=== PATIENT | male | born 1945 | race Caucasian/White ===

== ENCOUNTER 2018-08-14 17:02 | Emergency (ER) | payer MEDICARE, OTHER ==
[~2018-08-14] VITALS: Ht 177.8 cm; Wt 88.5 kg
[~2018-08-14 17:02] MED LIST: ASP81TEC PO; CARV12.53 PO; CEPH-507 PO; HYDR-4226 PO; LISI-552 PO; LISI10TA PO; MULT-974 PO; OMG1KC PO; OXYC-12 PO; PIOG1TAB PO; PRAV40TA2 PO; PRAV80TA2 PO; VITB1TAB PO; [UNRECOGNIZED DRUG - CODE] PO
[2018-08-14] MEDS ORDERED: METH4TAB PO (18:17)
[2018-08-14] MEDS ORDERED: AZIT250T PO (18:17)
--- NOTE | 2018-08-14 18:18 | ED Cough/URI ---
General Chief Complaint: Cough/Cold/Flu Symptoms Stated Complaint: CONGESTION/HEADACHE Nursing Triage Note: PT TO ED W/ C/O COUGH, CONGESTION ET SORE THROAT ONSET X5 DAYS, WORSE TODAY. DENIES IMPROVEMENT W/ OTC MEDS Sepsis Screen: No Definite Risk Source: patient Exam Limitations: no limitations History of Present Illness Date Seen by Provider: Aug 14, 2018 Time Seen by Provider: 18:16 Initial Comments 73-year-old male who presents to the emergency room with complaints of cough and congestion and sore throat for the past 5 days. He is tried several over-the -counter medications without improvement. He denies fevers. Timing/Duration: other (5 days) Severity/Quality: productive cough Associated Symptoms: cough, sore throat Allergies and Home Medications Allergies Coded Allergies: No Known Drug Allergies (Unverified , 06/23/12) Home Medications Aspirin 81 Mg Tabec, 81 MG PO DAILY, (Reported) Azithromycin 250 Mg Tablet, 250 MG PO UD TAKE 2 TABLETS TODAY, THEN TAKE 1 TABLET DAILY FOR 4 MORE DAYS Prescribed by: BARBARA ARVIZU on 08/14/181816 Carvedilol 12.5 Mg Tablet, 12.5 MG PO BID, (Reported) Cephalexin 500 Mg Capsule, 500 MG PO TID Prescribed by: ALLIE VELA on 12/15/15 113 Hydrocodone/Acetaminophen 1 Each Tablet, 1 EACH PO Q6H PRN for PAIN Prescribed by: ALLIE VELA on 12/15/15 113 Lisinopril 20 Mg Tablet, 20 MG PO DAILY, (Reported) Methylprednisolone 4 Mg Tab.ds.pk, 4 MG PO UD Prescribed by: BARBARA ARVIZU on 08/14/181816 Multivitamin 1 Each Tablet, 1 EACH PO DAILY, (Reported) Pioglitazone Hcl/Metformin Hcl 1 Each Tablet, 1 EACH PO DAILY, (Reported) Patient Home Medication List Home Medication List Reviewed: Yes Review of Systems Review of Systems Constitutional: no symptoms reported, see HPI EENTM: see HPI, nose congestion Respiratory: see HPI, cough All Other Systems Reviewed Negative Unless Noted: Yes Past Hoksirs-Xkmhit-Idjrkf Hx Past Med/Social Hx: Reviewed Nursing Past Med/Soc Hx Patient Social History Alcohol Use: Denies Use Recreational Drug Use: No Smoking Status: Former Smoker Former Smoker, Quit: Jul 12, 1972 Recent Foreign Travel: No Contact w/Someone Who Travel: No Recent Infectious Disease Expo: No Immunizations Up To Date Date of Pneumonia Vaccine: Aug 03, 2014 Date of Influenza Vaccine: Apr 23, 2014 Past Medical History Surgeries: Yes (ROTATOR CUFF) Orthopedic Respiratory: No Cardiac: Yes (STENT PLACED IN 2004) Heart Attack Neurological: No Reproductive Disorders: No Genitourinary: No Gastrointestinal: No Musculoskeletal: Yes (TORN ROTATOR CUFF) Endocrine: Yes Diabetes, Non-Insulin dep Cancer: Yes Prostate Psychosocial: No Blood Disorders: No Family Medical History Reviewed Nursing Family Hx Physical Exam Vital Signs - First Documented 08/14/18 17:31 Temp 98.3 Pulse 68 Resp 20 B/P (MAP) 184/82 (116) Pulse Ox 97 O2 Delivery Room Air Capillary Refill : Less Than 3 Seconds Height: 5'10.00" Weight: 195lbs. oz. 88.578396mq; 29.99 BMI Method:Stated General Appearance: WD/WN, no apparent distress Eyes: Bilateral Eye Normal Inspection, Bilateral Eye PERRL, Bilateral Eye EOMI HEENT: PERRL/EOMI, normal ENT inspection, TMs normal, pharynx normal Respiratory: chest non-tender, lungs clear, normal breath sounds, no respiratory distress, no accessory muscle use, respiratory distress Cardiovascular: normal peripheral pulses, regular rate, rhythm, no edema, no gallop, no JVD, no murmur Neurologic/Psychiatric: alert, normal mood/affect, oriented x 3 Skin: normal color, warm/dry Procedures/Interventions Suture Size: 5-0 Progress/Results/Core Measures Suspected Sepsis Recent Fever Within 48 Hours: No Infection Criteria Present: None New/Unexplained Altered Menta: No Sepsis Screen: No Definite Risk SIRS Temperature:98.3 Pulse: 68 Respiratory Rate: 20 Blood Pressure 184 /82 Mean: 116 Results/Orders My Orders Orders - BARBARA ARVIZU Azithromycin Tablet (Zithromax Tablet) (08/14/18 18:22) Vital Signs/I&O 08/14/18 08/14/18 08/14/18 17:31 18:00 18:27 Temp 98.3 98.3 Pulse 68 68 Resp 20 20 B/P (MAP) 184/82 (116) 184/82 (116) Pulse Ox 97 97 O2 Delivery Room Air Room Air Room Air Capillary Refill : Less Than 3 Seconds Blood Pressure Mean: 116 Departure Impression Primary Impression: Bronchitis Disposition: 01 HOME, SELF-CARE Condition: Stable/Unchanged Departure-Patient Inst. Decision time for Depature: 18:16 Referrals: ROSALBA AGUSTIN DO (PCP/Family) Primary Care Physician Patient Instructions: Acute Bronchitis, Adult (DC) Add. Discharge Instructions: Take medications as directed. Be sure to keep an eye on your blood sugars with the steroid use. Continue to use your yulj-sve-vmlnlby medications including something with a decongestant. Follow-up with your primary care provider within 1 week for recheck. Return back to the emergency room for worsening symptoms or concerns as needed. All discharge instructions reviewed with patient and/or family. Voiced understanding. Scripts Methylprednisolone (Medrol) 4 Mg Tab.ds.pk 4 MG PO UD, #1 PKG Prov: BARBARA ARVIZU 08/14/18 Azithromycin (Zithromax) 250 Mg Tablet 250 MG PO UD, #6 TAB TAKE 2 TABLETS TODAY, THEN TAKE 1 TABLET DAILY FOR 4 MORE DAYS Prov: BARBARA ARVIZU 08/14/18 BARBARA ARVIZU Aug 14, 2018 18:18
[2018-08-14] MEDS ORDERED: AZITHROMYCIN 250 MG TAB (ZITHROMAX) PO STA (18:22)
[2018-08-14 18:27] VITALS: BP 184/82
--- NOTE | 2018-08-14 18:27 | NUR ---
PT DISCHARGED TO HOME W/ INSTRUCTIONS. RX TRANSMITTED TO PHARMACY OF CHOICE, PT TO TAKE MEDS DIRECTED, F/U W/ PCP ET RETURN IF SYMPTOMS CHANGE OR GET WORSE. PT VOICED UNDERSTANDING.
== END 2018-08-14 18:27 | disposition home or self-care (01) ==
LOC: EDUNIT# 17:02 → ER 17:04
DX: J40 Bronchitis, not specified as acute or chronic (principal); I25.2 Old myocardial infarction; E78.00 Pure hypercholesterolemia, unspecified; Z85.46 Personal history of malignant neoplasm of prostate; Z79.82 Long term (current) use of aspirin; Z87.891 Personal history of nicotine dependence
CPT/HCPCS: 99283

== ENCOUNTER 2020-03-08 10:12 | Outpatient (RCR) | payer MEDICARE ==
[~2020-03-08 10:12] MED LIST changes: +AZIT250T PO; +METH4TAB PO
== END 2020-03-13 | disposition home or self-care (01) ==
LOC: EDBD
PROVIDERS: ATTEND Chiropractor
DX: M62.830 Muscle spasm of back (principal); M54.6 Pain in thoracic spine; M54.2 Cervicalgia; E11.9 Type 2 diabetes mellitus without complications

== ENCOUNTER 2020-04-05 10:21 | Outpatient (RCR) | payer MEDICARE | END 2020-05-27 15:20 | disposition home or self-care (01) | PROVIDERS: ATTEND Chiropractor | DX: M54.2 Cervicalgia (principal); M54.6 Pain in thoracic spine; M62.830 Muscle spasm of back; E11.9 Type 2 diabetes mellitus without complications ==

== ENCOUNTER 2022-03-04 11:02 | Emergency (ER) | payer MEDICARE ==
[~2022-03-04] VITALS: Ht 177.8 cm; Wt 88.4 kg
[~2022-03-04 11:02] MED LIST changes: -LISI-552 PO; +LISI20TA26 PO
[2022-03-04] MEDS ORDERED: ACETAMINOPHEN 500 MG TAB (TYLENOL) PO ONE (11:30)
[2022-03-04] MEDS ORDERED: IBUPROFEN TABLET 200 MG TAB PO ONE (11:30)
[2022-03-04] MEDS ORDERED: LIDOCAINE 2% VISCOUS 15 ML UDC PO ONE (11:30)
[2022-03-04] MEDS ORDERED: ANTACID SUSP 30 ML UDC (MYLANTA) PO ONE (11:30)
--- NOTE | 2022-03-04 11:32 | ED Respiratory ---
General Stated Complaint: COVID+,DIFFICULTY SWALLOWING,SOB,N/V Source: patient Exam Limitations: no limitations History of Present Illness Date Seen by Provider: Mar 04, 2022 Time Seen by Provider: 11:09 Initial Comments 82-year-old male with past medical history of hypertension, hyperlipidemia, CAD with stenting coming in with spouse due to being COVID-positive, having a sore throat, and feeling short of breath. Started having symptoms on Wednesday, mostly fever and sore throat. Tested positive on Wednesday and was started on Paxlovid that day. Today the sore throat is more severe, he is having difficulty swa llowing although he does not feel like it swollen at all, no difficulty speaking or opening his mouth. Says he feels short of breath, particularly with any type of activity which has been going on for the past week. Last had Tylenol last night. He did swallow his medicines this morning, but is having such pain that he is having difficulty swallowing besides that. He is otherwise denying any other acute complaints Allergies and Home Medications Allergies Coded Allergies: No Known Drug Allergies (Unverified , 06/23/12) Patient Home Medication List Home Medication List Reviewed: Yes Aspirin (Aspirin Ec 81 Mg) 81 Mg Tabec, 81 MG PO DAILY, (Reported) Entered as Reported by: ALECIA MORE on 06/23/12 155 Azithromycin (Zithromax) 250 Mg Tablet, 250 MG PO UD Prescribed by: BARBARA ARVIZU on 08/14/181816 Carvedilol (Carvedilol) 12.5 Mg Tablet, 12.5 MG PO BID, (Reported) Entered as Reported by: BRADLEY ELLSWORTH on 12/15/15 1118 Cephalexin (Keflex) 500 Mg Capsule, 500 MG PO TID Prescribed by: ALLIE VELA on 12/15/15 1139 Hydrocodone/Acetaminophen (Hydrocodone/Acetaminophen 5 MG/325 MG TAB) 1 Each Tablet, 1 EACH PO Q6H PRN for PAIN Prescribed by: ALLIE VELA on 12/15/15 1139 Lisinopril (Lisinopril) 20 Mg Tablet, 20 MG PO DAILY, (Reported) Entered as Reported by: BRADLEY ELLSWORTH on 12/15/15 1118 Methylprednisolone (Medrol) 4 Mg Tab.ds.pk, 4 MG PO UD Prescribed by: BARBARA ARVIZU on 2/3/19 1817 Multivitamin (Multi Vitamin Daily) 1 Each Tablet, 1 EACH PO DAILY, (Reported) Entered as Reported by: HAROON GRACE on 09/04/14 1300 Multivits,Stress Formula (Stress-C) 1 Each Tablet, 1 EACH PO, (Reported) Entered as Reported by: BRADLEY ELLSWORTH on 12/15/15 1118 Pioglitazone Hcl/Metformin Hcl (Actoplus Met 15 Mg-850 Mg Tab) 1 Each Tablet, 1 EACH PO DAILY, (Reported) Entered as Reported by: ALECIA MORE on 06/23/12 1554 Pravastatin Sodium (Pravastatin Sodium) 40 Mg Tablet, 40 MG PO, (Reported) Entered as Reported by: BRADLEY ELLSWORTH on 12/15/15 1118 Review of Systems Review of Systems Constitutional: fever EENTM: No blurred vision Respiratory: cough, short of breath Cardiovascular: no symptoms reported Gastrointestinal: no symptoms reported Genitourinary: no symptoms reported Musculoskeletal: no symptoms reported Skin: no symptoms reported Psychiatric/Neurological: No Symptoms Reported Hematologic/Lymphatic: No Symptoms Reported Immunological/Allergic: no symptoms reported All Other Systems Reviewed Negative Unless Noted: Yes Past Ipflntq-Zvcxes-Tvdhxp Hx Patient Social History Tobacco Use?: No Past Medical History Surgeries: Yes (ROTATOR CUFF) Orthopedic Respiratory: No Cardiac: Yes (STENT PLACED IN 2004) Heart Attack Neurological: No Reproductive Disorders: No Genitourinary: No Gastrointestinal: No Musculoskeletal: Yes (TORN ROTATOR CUFF) Endocrine: Yes Diabetes, Non-Insulin dep Cancer: Yes Prostate Psychosocial: No Blood Disorders: No Physical Exam Vital Signs - First Documented 03/04/22 11:22 Temp 37.3 Pulse 91 Resp 20 B/P (MAP) 186/94 (124) Pulse Ox 93 O2 Delivery Room Air Capillary Refill : Height: 5'10.00" Weight: 195lbs. oz. 88.959422fr; 29.99 BMI Method:Stated General Appearance: WD/WN, no apparent distress Eyes: Bilateral Eye Normal Inspection HEENT: PERRL/EOMI, normal ENT inspection, other (Mild oropharynx erythema but no exudate, no swelling or asymmetry, no trismus, normal voice) Neck: non-tender, full range of motion, supple, normal inspection Respiratory: chest non-tender, lungs clear, normal breath sounds, no respiratory distress, no accessory muscle use Cardiovascular: regular rate, rhythm, no edema, no murmur Gastrointestinal: normal bowel sounds, non tender, soft; No distended, No guarding, No rebound Extremities: normal range of motion, non-tender, normal inspection, no pedal edema, no calf tenderness, normal capillary refill Neurologic/Psychiatric: no motor/sensory deficits, alert, normal mood/affect Skin: normal color, warm/dry Lymphatic: no adenopathy Procedures/Interventions Suture Size: 5-0 Progress/Results/Core Measures Suspected Sepsis SIRS Temperature: Pulse: Respiratory Rate: Laboratory Tests 03/04/22 11:36: White Blood Count 5.7 Blood Pressure / Mean: Laboratory Tests 03/04/22 11:36: Creatinine 1.18, INR Comment 1.0, Platelet Count 120L, Total Bilirubin 1.2H Results/Orders Lab Results Laboratory Tests Test 03/04/22 11:36 Range/Units White Blood Count 5.7 4.3-11.0 10^3/uL Red Blood Count 4.35 4.30-5.52 10^6/uL Hemoglobin 13.8 13.3-17.7 g/dL Hematocrit 40 40-54 % Mean Corpuscular Volume 91 80-99 fL Mean Corpuscular Hemoglobin 32 25-34 pg Mean Corpuscular Hemoglobin Concent 35 32-36 g/dL Red Cell Distribution Width 13.2 10.0-14.5 % Platelet Count 120 L 130-400 10^3/uL Mean Platelet Volume 8.0 L 9.0-12.2 fL Immature Granulocyte % (Auto) 0 % Neutrophils (%) (Auto) 69 42-75 % Lymphocytes (%) (Auto) 19 12-44 % Monocytes (%) (Auto) 9 0-12 % Eosinophils (%) (Auto) 3 0-10 % Basophils (%) (Auto) 0 0-10 % Neutrophils # (Auto) 3.9 1.8-7.8 10^3/uL Lymphocytes # (Auto) 1.1 1.0-4.0 10^3/uL Monocytes # (Auto) 0.5 0.0-1.0 10^3/uL Eosinophils # (Auto) 0.2 0.0-0.3 10^3/uL Basophils # (Auto) 0.0 0.0-0.1 10^3/uL Immature Granulocyte # (Auto) 0.0 0.0-0.1 10^3/uL Percent Immature Platelet Fraction 0.6 0.0-7.6 % Prothrombin Time 13.3 12.2-14.7 SEC INR Comment 1.0 0.8-1.4 Activated Partial Thromboplast Time 34 24-35 SEC Sodium Level 139 135-145 MMOL/L Potassium Level 4.0 3.6-5.0 MMOL/L Chloride Level 105 98-107 MMOL/L Carbon Dioxide Level 21 21-32 MMOL/L Anion Gap 13 5-14 MMOL/L Blood Urea Nitrogen 18 7-18 MG/DL Creatinine 1.18 0.60-1.30 MG/DL Estimat Glomerular Filtration Rate 62 BUN/Creatinine Ratio 15 Glucose Level 176 H 70-105 MG/DL Calcium Level 9.4 8.5-10.1 MG/DL Corrected Calcium 9.2 8.5-10.1 MG/DL Magnesium Level 1.5 L 1.6-2.4 MG/DL Total Bilirubin 1.2 H 0.1-1.0 MG/DL Aspartate Amino Transf (AST/SGOT) 30 5-34 U/L Alanine Aminotransferase (ALT/SGPT) 34 0-55 U/L Alkaline Phosphatase 61 40-136 U/L Troponin I < 0.028 <0.028 NG/ML B-Type Natriuretic Peptide 19.4 <100.0 PG/ML Total Protein 7.5 6.4-8.2 GM/DL Albumin 4.3 3.2-4.5 GM/DL My Orders Orders - CARLA DUGAN MD Cbc With Automated Diff (03/04/22 11:30) Magnesium (03/04/22 11:30) Chest 1 View, Ap/Pa Only (03/04/22 11:30) Ekg Tracing (03/04/22 11:30) Comprehensive Metabolic Panel (03/04/22 11:30) Protime With Inr (03/04/22 11:30) Partial Thromboplastin Time (03/04/22 11:30) O2 (03/04/22 11:30) Monitor-Rhythm Ecg Trace Only (03/04/22 11:30) Ed Iv/Invasive Line Start (03/04/22 11:30) Bnp Jane (03/04/22 11:30) Troponin I Jane (03/04/22 11:30) Lidocaine 2% Viscous 15 Ml (Xylocaine Vi (03/04/22 11:30) Antacid Suspension (Mylanta Suspension (03/04/22 11:30) Ibuprofen Tablet (Motrin Tablet) (03/04/22 11:30) Acetaminophen Tablet (Tylenol Tablet) (03/04/22 11:30) Dexamethasone Injection (Decadron Injec (03/04/22 11:45) Ns Iv 500 Ml (Sodium Chloride 0.9%) (03/04/22 11:35) Medications Given in ED Current Medications Medications Dose Ordered Sig/Sangeetha Route Start Time Stop Time Status Last Admin Dose Admin Acetaminophen 1,000 mg ONCE ONCE PO 03/04/22 11:30 03/04/22 11:32 DC 03/04/22 11:46 1,000 MG Al Hydrox/Mg Hydrox/Simethicone 30 ml ONCE ONCE PO 03/04/22 11:30 03/04/22 11:32 DC 03/04/22 11:40 30 ML Dexamethasone Sodium Phosphate 8 mg ONCE ONCE IV 03/04/22 11:45 03/04/22 11:46 DC 03/04/22 11:43 8 MG Ibuprofen 400 mg ONCE ONCE PO 03/04/22 11:30 03/04/22 11:32 DC 03/04/22 11:46 400 MG Lidocaine HCl 15 ml ONCE ONCE PO 03/04/22 11:30 03/04/22 11:32 DC 03/04/22 11:40 15 ML Vital Signs/I&O 03/04/22 11:22 Temp 37.3 Pulse 91 Resp 20 B/P (MAP) 186/94 (124) Pulse Ox 93 O2 Delivery Room Air Capillary Refill : Progress Note : Progress Note 82-year-old male with above history coming in COVID positive for feeling short of breath with a sore throat. ABCs were intact and vitals were stable on presentation. Oxygen saturation was 94% on room air even when I moved him around the room walking. Lungs clear. Throat appears normal other than mildly red and I do not see any concerns for any type of abscess or swelling. He is tolerating p.o. Was given a GI cocktail of lidocaine which improved his pain. Chest x-ray with likely developing mild pneumonia in the left lower lung. Given this is asymmetric, we will treat this as if it is bacterial with doxycycline. Basic labs essentially unremarkable including a negative troponin. He is otherwise well-appearing and I believe stable for discharge with outpatient follow-up. He was sent home with strict return precautions. ECG Initial ECG Impression Date: Mar 04, 2022 Initial ECG Impression Time: 11:51 Initial ECG Rate: 82 Initial ECG Rhythm: Normal Sinus Comment Narrow QRS, left axis deviation, T wave inversion in aVL which is nonspecific, no significant ST changes Diagnostic Imaging Diagonstic Imaging: Xray (chest) Comments NAME: RUDDY RIOS [facility] REC#: [id number] PT STATUS: REG ER : 03/29/1939 PHYSICIAN: CARLA DUGAN MD ADMIT DATE: 03/04/22/ER Draft Date of Exam:03/04/22 CHEST 1 VIEW, AP/PA ONLY INDICATION: Pharyngitis, respiratory infection. EXAMINATION: Portable chest at 12:00 p.m. FINDINGS: Heart and mediastinum are normal. There is a small patchy infiltrate at the left lateral lung base. Right lung is clear. IMPRESSION: Small patchy infiltrate in the left lower lung could be developing pneumonia. Dictated on workstation # [id number] Dict: 03/04/22 1213 Trans: 03/04/22 1218 [id number] Interpreted by: RONY GRAFF MD Electronically signed by: Departure Impression Primary Impression: COVID-19 Additional Impression: Pharyngitis Qualified Codes: J02.8 - Acute pharyngitis due to other specified organisms Disposition: 01 HOME, SELF-CARE Condition: Stable Departure-Patient Inst. Decision time for Depature: 12:31 Referrals: ROSALBA AGUSTIN DO (PCP/Family) Primary Care Physician Patient Instructions: COVID-19 (DC) Add. Discharge Instructions: You will be on antibiotics for the next week. Continue to take the Paxlovid and finish it. If things get a lot worse then you can follow-up with your regular doctor or come back to the ER. I do recommend taking Tylenol and/or ibuprofen for your sore throat. Scripts Doxycycline Hyclate (Doxycycline Hyclate) 100 Mg Tablet 100 MG PO BID for 7 Days, #14 TAB 0 Refills Prov: CARLA DUGAN MD 03/04/22 CARLA DUGAN MD Mar 04, 2022 11:32
[2022-03-04] MEDS ORDERED: NS IV 500 ML 500 ML IV STA (11:35)
[2022-03-04 11:44] LABS: HEMOGLOBIN 13.8 g/dL (13.3-17.7)
[2022-03-04 11:46] LABS: BASOPHILS % (AUTO) 0 % (0-10); EOSINOPHILS # (AUTO) 0.2 10^3/uL (0.0-0.3); EOSINOPHILS % (AUTO) 3 % (0-10); HEMATOCRIT 40 % (40-54); LYMPHOCYTES # (AUTO) 1.1 10^3/uL (1.0-4.0); LYMPHOCYTES % (AUTO) 19 % (12-44); MEAN CORPUSCULAR HEMOGLOBIN 32 pg (25-34); MEAN CORPUSCULAR HGB CONC 35 g/dL (32-36); MEAN CORPUSCULAR VOLUME 91 fL (80-99); MONOCYTES # (AUTO) 0.5 10^3/uL (0.0-1.0); MONOCYTES % (AUTO) 9 % (0-12); NEUTROPHILS # (AUTO) 3.9 10^3/uL (1.8-7.8); NEUTROPHILS % (AUTO) 69 % (42-75); PLATELET COUNT 120 10^3/uL (130-400); WHITE BLOOD COUNT 5.7 10^3/uL (4.3-11.0)
[2022-03-04 12:08] LABS: ALBUMIN 4.3 GM/DL (3.2-4.5)
[2022-03-04 12:09] LABS: CALCIUM 9.4 MG/DL (8.5-10.1); PROTHROMBIN TIME PATIENT 13.3 SEC (12.2-14.7)
[2022-03-04 12:10] LABS: TOTAL PROTEIN 7.5 GM/DL (6.4-8.2)
[2022-03-04 12:12] LABS: BILIRUBIN,TOTAL 1.2 MG/DL (0.1-1.0)
[2022-03-04 12:14] LABS: CREATININE SERUM 1.18 MG/DL (0.60-1.30)
[2022-03-04 12:17] LABS: MAGNESIUM 1.5 MG/DL (1.6-2.4)
--- NOTE | 2022-03-04 12:19 | Diagnostic Imaging Report ---
INDICATION: Pharyngitis, respiratory infection. EXAMINATION: Portable chest at 12:00 p.m. FINDINGS: Heart and mediastinum are normal. There is a small patchy infiltrate at the left lateral lung base. Right lung is clear. IMPRESSION: Small patchy infiltrate in the left lower lung could be developing pneumonia. Dictated by: Dictated on workstation # [id number]
[2022-03-04] MEDS ORDERED: DOXY100T2 PO (12:32)
[2022-03-04] MEDS ORDERED: DOXYCYCLINE 100 MG (VIBRAMYCIN) TABLET PO STA (12:33)
[2022-03-04 13:02] VITALS: BP 117/59
== END 2022-03-04 13:02 | disposition home or self-care (01) ==
LOC: EDUNIT# 11:02 → ER 11:05
DX: U07.1 COVID-19 (principal); Z73.0 Burn-out
CPT/HCPCS: 36415; 71045; 80053; 83735; 83880; 84484; 85025; 85610; 85730; 93005; 96374

== ENCOUNTER 2022-03-09 12:36 | Emergency (ER) | payer MEDICARE ==
[~2022-03-09] VITALS: Ht 173 cm; Wt 88.4 kg
[~2022-03-09 12:36] MED LIST changes: +DOXY100T2 PO
[2022-03-09] MEDS ORDERED: RT-ALBUTEROL/IPRATROPIUM 3 ML (DUONEB) VIAL INH ONE (13:15)
--- NOTE | 2022-03-09 13:25 | ED General ---
General Chief Complaint: COVID19 Suspect/Confirmed Stated Complaint: COVID + Nursing Triage Note: PT TESTED COVID + LAST WEDNESDAY, IS DONE TAKING HIS MEDICATION, S/S STARTED 1 WK AGO WEDNESDAY, DIABETIC Source of Information: Patient Exam Limitations: No Limitations History of Present Illness Date Seen by Provider: Mar 09, 2022 Time Seen by Provider: 13:15 Initial Comments 82-year-old male diabetic presents for COVID symptoms, shortness of breath and chest pain. He tested positive for COVID 1 week and 1 day ago. Has had progressively worsening shortness of breath at home since that time. Over the last several hours she also states he has had some midsternal chest pressure with radiation to his left shoulder area. He has had a cough which has been minimally productive. Also has fever chills and body aches at home. His blood sugars have been running significantly high in the 500s. Notably he has been on steroids to help with his symptoms and has also been on Paxlovid. Allergies and Home Medications Allergies Coded Allergies: No Known Drug Allergies (Unverified , 06/23/12) Patient Home Medication List Home Medication List Reviewed: Yes Aspirin (Aspirin Ec 81 Mg) 81 Mg Tabec, 81 MG PO DAILY, (Reported) Entered as Reported by: ALECIA MORE on 06/23/12 155 Azithromycin (Zithromax) 250 Mg Tablet, 250 MG PO UD Prescribed by: BARBARA ARVIZU on 08/14/18 181 Carvedilol (Carvedilol) 12.5 Mg Tablet, 12.5 MG PO BID, (Reported) Entered as Reported by: BRADLEY ELLSWORTH on 12/15/15 1118 Cephalexin (Keflex) 500 Mg Capsule, 500 MG PO TID Prescribed by: ALLIE VELA on 12/15/15 1139 Doxycycline Hyclate (Doxycycline Hyclate) 100 Mg Tablet, 100 MG PO BID Prescribed by: CARLA DUGAN on 03/04/22 1232 Hydrocodone/Acetaminophen (Hydrocodone/Acetaminophen 5 MG/325 MG TAB) 1 Each Tablet, 1 EACH PO Q6H PRN for PAIN Prescribed by: ALLIE VELA on 12/15/15 1139 Lisinopril (Lisinopril) 20 Mg Tablet, 20 MG PO DAILY, (Reported) Entered as Reported by: BRADLEY ELLSWORTH on 12/15/15 1118 Methylprednisolone (Medrol) 4 Mg Tab.ds.pk, 4 MG PO UD Prescribed by: BARBARA ARVIZU on 08/14/18 1817 Multivitamin (Multi Vitamin Daily) 1 Each Tablet, 1 EACH PO DAILY, (Reported) Entered as Reported by: HAROON GRACE on 09/04/14 1300 Multivits,Stress Formula (Stress-C) 1 Each Tablet, 1 EACH PO, (Reported) Entered as Reported by: BRADLEY ELLSWORTH on 12/15/15 1118 Pioglitazone Hcl/Metformin Hcl (Actoplus Met 15 Mg-850 Mg Tab) 1 Each Tablet, 1 EACH PO DAILY, (Reported) Entered as Reported by: ALECIA MORE on 06/23/12 1554 Pravastatin Sodium (Pravastatin Sodium) 40 Mg Tablet, 40 MG PO, (Reported) Entered as Reported by: BRADLEY ELLSWORTH on 12/15/15 1118 Review of Systems Review of Systems Constitutional: chills, fever, malaise EENTM: no symptoms reported Respiratory: cough, short of breath Cardiovascular: chest pain Gastrointestinal: no symptoms reported Genitourinary: no symptoms reported Musculoskeletal: muscle cramps Skin: no symptoms reported Psychiatric/Neurological: No Symptoms Reported Hematologic/Lymphatic: No Symptoms Reported Immunological/Allergic: no symptoms reported Past Lpayihl-Ipowfl-Qwdicj Hx Patient Social History Tobacco Use?: Yes Smoking Status: Former Smoker Substance use?: No Alcohol Use?: No Immunizations Up To Date First/Initial COVID19 Vaccinat: UNK Second COVID19 Vaccination Daryl: UNK Third COVID19 Vaccination Date: UNK Past Medical History Surgery/Hospitalization HX: DM, HTN, AMI WITH STENTS Surgeries: Yes (ROTATOR CUFF) Orthopedic Respiratory: No Cardiac: Yes (STENT PLACED IN 2004) Heart Attack Neurological: No Reproductive Disorders: No Genitourinary: No Gastrointestinal: No Musculoskeletal: Yes (TORN ROTATOR CUFF) Endocrine: Yes Diabetes, Non-Insulin dep Cancer: Yes Prostate Psychosocial: No Blood Disorders: No Family Medical History Reviewed Nursing Family Hx No Pertinent Family Hx Physical Exam Vital Signs Vital Signs - First Documented 03/09/22 13:04 Temp 37.3 Pulse 92 Resp 20 B/P (MAP) 189/98 (128) O2 Delivery Room Air Capillary Refill : Height, Weight, BMI Height: 5'10.00" Weight: 195lbs. oz. [id number]; 29.00 BMI Method:Stated General Appearance: No Apparent Distress, WD/WN Eyes: Bilateral Eye Normal Inspection, Bilateral Eye PERRL, Bilateral Eye EOMI, Bilateral Eye Abnormal EOM, Bilateral Eye Abnormal Pupil, Bilateral Eye Conjunctivae Pale, Bilateral Eye Lid Inflammation, Bilateral Eye Photophobia, B ilateral Eye Scleral Icterus, Bilateral Eye Other HEENT: TMs Normal, Normal ENT Inspection, Other Neck: Normal Inspection, Non Tender (Dry mucous membranes), Supple Respiratory: Chest Non Tender, No Respiratory Distress, Other (Tachypnea, slight expiratory wheezes bilateral bases.) Cardiovascular: Regular Rate, Rhythm, No Edema, No Gallop, No JVD, No Murmur, Normal Peripheral Pulses Gastrointestinal: Normal Bowel Sounds, No Organomegaly, No Pulsatile Mass, Non Tender Extremity: Normal Capillary Refill, Normal Inspection, Normal Range of Motion, Non Tender, No Calf Tenderness Neurologic/Psychiatric: Alert, Oriented x3, No Motor/Sensory Deficits, Normal Mood/Affect Skin: Normal Color, Warm/Dry Procedures/Interventions Suture Size: 5-0 Progress/Results/Core Measures Suspected Sepsis SIRS Temperature: Pulse: 92 Respiratory Rate: 20 Laboratory Tests 03/09/22 13:19: White Blood Count 11.3H Blood Pressure 189 /98 Mean: 128 Laboratory Tests 03/09/22 13:19: Creatinine 1.71H, Platelet Count 212, Total Bilirubin 0.9 Results/Orders Lab Results Laboratory Tests Test 03/09/22 13:19 Range/Units White Blood Count 11.3 H 4.3-11.0 10^3/uL Red Blood Count 5.18 4.30-5.52 10^6/uL Hemoglobin 16.4 13.3-17.7 g/dL Hematocrit 47 40-54 % Mean Corpuscular Volume 91 80-99 fL Mean Corpuscular Hemoglobin 32 25-34 pg Mean Corpuscular Hemoglobin Concent 35 32-36 g/dL Red Cell Distribution Width 13.1 10.0-14.5 % Platelet Count 212 130-400 10^3/uL Mean Platelet Volume 8.7 L 9.0-12.2 fL Immature Granulocyte % (Auto) 2 % Neutrophils (%) (Auto) 84 H 42-75 % Lymphocytes (%) (Auto) 7 L 12-44 % Monocytes (%) (Auto) 7 0-12 % Eosinophils (%) (Auto) 0 0-10 % Basophils (%) (Auto) 0 0-10 % Neutrophils # (Auto) 9.5 H 1.8-7.8 10^3/uL Lymphocytes # (Auto) 0.8 L 1.0-4.0 10^3/uL Monocytes # (Auto) 0.8 0.0-1.0 10^3/uL Eosinophils # (Auto) 0.0 0.0-0.3 10^3/uL Basophils # (Auto) 0.0 0.0-0.1 10^3/uL Immature Granulocyte # (Auto) 0.2 H 0.0-0.1 10^3/uL Neutrophils % (Manual) 80 % Lymphocytes % (Manual) 9 % Monocytes % (Manual) 11 % Blood Morphology Comment NORMAL D-Dimer 1.47 H 0.00-0.49 UG/ML Sodium Level 147 H 135-145 MMOL/L Potassium Level 5.4 H 3.6-5.0 MMOL/L Chloride Level 108 H 98-107 MMOL/L Carbon Dioxide Level 22 21-32 MMOL/L Anion Gap 17 H 5-14 MMOL/L Blood Urea Nitrogen 55 H 7-18 MG/DL Creatinine 1.71 H 0.60-1.30 MG/DL Estimat Glomerular Filtration Rate 40 BUN/Creatinine Ratio 32 Glucose Level 458 *H 70-105 MG/DL Calcium Level 10.9 H 8.5-10.1 MG/DL Corrected Calcium 10.7 H 8.5-10.1 MG/DL Total Bilirubin 0.9 0.1-1.0 MG/DL Aspartate Amino Transf (AST/SGOT) 52 H 5-34 U/L Alanine Aminotransferase (ALT/SGPT) 156 H 0-55 U/L Alkaline Phosphatase 68 40-136 U/L Troponin I < 0.028 <0.028 NG/ML Total Protein 7.6 6.4-8.2 GM/DL Albumin 4.2 3.2-4.5 GM/DL My Orders Orders - MOO AVILA DO Cbc With Automated Diff (03/09/22 13:14) Comprehensive Metabolic Panel (03/09/22 13:14) Troponin I [place] (03/09/22 13:14) Chest 1 View, Ap/Pa Only (03/09/22 13:14) Ekg Tracing (03/09/22 13:14) Albuterol/Ipra Inhalation Soln (Duoneb I (03/09/22 13:15) Svn Small Volume Nebulizer (03/09/22 13:14) Fibrin Degradation Products (03/09/22 13:14) Ns Iv 1000 Ml (Sodium Chloride 0.9%) (03/09/22 13:30) Ns Iv 1000 Ml (Sodium Chloride 0.9%) (03/09/22 13:30) Manual Differential (03/09/22 13:19) Ns Iv 500 Ml (Sodium Chloride 0.9%) (03/09/22 13:45) Ns Iv 500 Ml (Sodium Chloride 0.9%) (03/09/22 13:45) Medications Given in ED Current Medications Medications Dose Ordered Sig/Sangeetha Route Start Time Stop Time Status Last Admin Dose Admin Albuterol/ Ipratropium 3 ml ONCE ONCE INH 03/09/22 13:15 03/09/22 13:16 DC 03/09/22 13:40 3 ML Sodium Chloride 500 ml @ 0 mls/hr ONCE ONCE IV 03/09/22 13:45 03/09/22 13:37 DC 03/09/22 13:35 1,000 MLS/HR Vital Signs/I&O 03/09/22 13:04 Temp 37.3 Pulse 92 Resp 20 B/P (MAP) 189/98 (128) O2 Delivery Room Air Capillary Refill : Blood Pressure Mean: 128 Departure Communication (Admissions) Patient is hemodynamically stable. Hypertensive. Has obvious oral thrush on exam likely from steroid use. I believe some of his feeling ill is also related to elevated blood sugars which are also likely related to steroid use. Advised him to stop taking the steroids at this time. Chest x-ray shows no focal pneumonias that would require antibiotics. Will give nystatin swish and swallow and discharged home with supportive care. He is comfortable. Current plan of care and questions were sought and answered. He is discharged home in stable condition. Impression Primary Impression: COVID-19 Additional Impression: Oral thrush Disposition: 01 HOME, SELF-CARE Condition: Stable Departure-Patient Inst. Decision time for Depature: 15:01 Referrals: ROSALBA AGUSTIN DO (PCP/Family) Primary Care Physician Patient Instructions: Thrush (DC), COVID-19 (DC) Add. Discharge Instructions: You were seen in the emergency department today for COVID symptoms. As discussed vital signs are reassuring. Your exam is also reassuring. Your chest x-ray does not show any evidence for pneumonia that would require antibiotics. Your blood sugars are elevated secondary to the steroids you have been on and I expect these to normalize at least somewhat now that you are not taking them. You have oral thrush which is likely the cause of your sore throat. I think this is likely from steroid use as well. Use the mouth rinse provided as prescribed for 7 days. Return to the emergency department for any severe concer ns specifically fever shortness of breath becomes severe if he has any chest pain or if your symptoms change in any way concerning to you. Follow-up with your primary doctor in the next 48 hours for reevaluation. All discharge instructions reviewed with patient and/or family. Voiced understanding. Scripts Nystatin (Nystatin) 100,000 Unit/Ml Oral.susp [id number] UNIT PO TID for 7 Days, #100 ML Prov: MOO AVILA DO 03/09/22 MOO AVILA DO Mar 09, 2022 13:25
[2022-03-09 13:28] LABS: BASOPHILS % (AUTO) 0 % (0-10); EOSINOPHILS % (AUTO) 0 % (0-10); HEMATOCRIT 47 % (40-54); HEMOGLOBIN 16.4 g/dL (13.3-17.7); LYMPHOCYTES # (AUTO) 0.8 10^3/uL (1.0-4.0); LYMPHOCYTES % (AUTO) 7 % (12-44); MEAN CORPUSCULAR HEMOGLOBIN 32 pg (25-34); MEAN CORPUSCULAR HGB CONC 35 g/dL (32-36); MEAN CORPUSCULAR VOLUME 91 fL (80-99); MEAN PLATELET VOLUME 8.7 fL (9.0-12.2); MONOCYTES # (AUTO) 0.8 10^3/uL (0.0-1.0); MONOCYTES % (AUTO) 7 % (0-12); NEUTROPHILS # (AUTO) 9.5 10^3/uL (1.8-7.8); NEUTROPHILS % (AUTO) 84 % (42-75); PLATELET COUNT 212 10^3/uL (130-400); WHITE BLOOD COUNT 11.3 10^3/uL (4.3-11.0)
[2022-03-09] MEDS ORDERED: NS IV 1000 ML 500 ML IV SCH (13:30)
[2022-03-09] MEDS ORDERED: NS IV 1000 ML 1,000 ML IV SCH (13:30)
[2022-03-09] MEDS ORDERED: NS IV 500 ML 500 ML ONE (13:45)
[2022-03-09] MEDS ORDERED: NS IV 500 ML 500 ML IV ONE (13:45)
[2022-03-09 13:46] LABS: ALBUMIN 4.2 GM/DL (3.2-4.5)
[2022-03-09 13:47] LABS: CHLORIDE 108 MMOL/L (98-107); POTASSIUM 5.4 MMOL/L (3.6-5.0); SODIUM 147 MMOL/L (135-145)
[2022-03-09 13:48] LABS: CALCIUM 10.9 MG/DL (8.5-10.1)
[2022-03-09 13:49] LABS: TOTAL PROTEIN 7.6 GM/DL (6.4-8.2)
[2022-03-09 13:50] LABS: CARBON DIOXIDE 22 MMOL/L (21-32)
[2022-03-09 13:51] LABS: BILIRUBIN,TOTAL 0.9 MG/DL (0.1-1.0); GLUCOSE 458 MG/DL (70-105)
[2022-03-09 13:52] LABS: ALKALINE PHOSPHATASE 68 U/L (40-136)
[2022-03-09 13:53] LABS: CREATININE SERUM 1.71 MG/DL (0.60-1.30); GFR ESTIMATED 40
[2022-03-09 13:54] LABS: BUN/CREATININE RATIO 32
[2022-03-09 13:56] LABS: ALANINE AMINOTRANSFERASE 156 U/L (0-55)
--- NOTE | 2022-03-09 13:57 | Diagnostic Imaging Report ---
CLINICAL INDICATION: COVID positive and dyspnea. EXAM: Portable chest x-ray upright view. COMPARISON: Chest x-ray dated 03/04/2022. FINDINGS: Lungs/pleura: There is slight improved aeration left lung base with residual mild curvilinear patchy airspace opacities remaining. The remainder of the lungs are clear. There is no pneumothorax. There is no pleural effusion. Mediastinum: Unremarkable. Pulmonary vasculature: Unremarkable. Heart: Unremarkable. Bones/extrathoracic soft tissue: There are hypertrophic spurs involving the thoracic spine. IMPRESSION: There is improved aeration left lung base with residual minimal left basilar atelectasis versus infiltrate. Dictated by: Dictated on workstation # [id number]
[2022-03-09 14:09] LABS: LYMPHOCYTES % (MANUAL) 9 %; MONOCYTES % (MANUAL) 11 %; NEUTROPHILS % (MANUAL) 80 %; RBC MORPH NORMAL
[2022-03-09] MEDS ORDERED: NYST1000 PO (15:01)
[2022-03-09 15:15] VITALS: BP 196/95
[2022-03-10] MEDS ORDERED: ALBU8.5H9 IH (17:25)
[2022-03-10] MEDS ORDERED: METF-865 PO (17:25)
[2022-03-10] MEDS ORDERED: GLIM2TAB4 PO (17:25)
[2022-03-10] MEDS ORDERED: SITA100T12 PO (17:25)
[2022-03-10] MEDS ORDERED: ASCO100024 PO (17:25)
[2022-03-10] MEDS ORDERED: [UNRECOGNIZED DRUG - OTHER] PO (17:25)
[2022-03-10] MEDS ORDERED: ZINC50TA51 PO (17:25)
[2022-03-10] MEDS ORDERED: ATOR40TA70 PO (17:25)
[2022-03-10] MEDS ORDERED: CHOL500050 PO (17:25)
== END 2022-03-09 15:15 | disposition home or self-care (01) ==
LOC: EDUNIT# 12:36 → ER 12:38
DX: U07.1 COVID-19 (principal); B37.0 Candidal stomatitis; Z87.891 Personal history of nicotine dependence; Z73.0 Burn-out
CPT/HCPCS: 36415; 71045; 80053; 84484; 85007; 85027; 85379; 93005

== ENCOUNTER 2022-03-10 14:35 | Observation (INO) | payer MEDICARE ==
[~2022-03-10] VITALS: Ht 172.7 cm; Wt 78.6 kg
[~2022-03-10 14:35] MED LIST changes: +NYST1000 PO
[2022-03-10] MEDS ORDERED: PATIENT MAY USE OWN MEDS, ALL PO SCH (14:45)
[2022-03-10] MEDS ORDERED: ACETAMINOPHEN 325 MG TABLET PO PRN (14:45)
[2022-03-10] MEDS ORDERED: ONDANSETRON 4 MG/2 ML (SDV) Z0FRAN IV PRN (14:45)
--- NOTE | 2022-03-10 14:52 | History & Physical ---
History of Present Illness History of Present Illness Reason for visit/HPI This is an 82 year old male who was diagnosed with COVID-19 on 03/02/22. He was seen in the emergency room for fatigue, shortness of breath and weakness on 03/04/22 and told to continue with the paxlovid and hydrate and his medications were adjusted for his elevated blood sugar from steroids. He then presented back to the emergency room on 03/09/22 for weakness, chest pain and shortness of air. His cardiac workup was negative. He was found to be dehydrated and to have thrush. He was prescribed nystatin and told to go home and hydrate. He presents to my office today with his pushing him in a wheelchair and stating he is dying. He has been unable to drink or eat due to his weakness and feeling nauseous. He will be directly admitted for IVFs and further evaluation and treatment. Date of Admission Date Seen by a Provider: Mar 10, 2022 Time Seen by a Provider: 14:51 I consulted on this patient on 03/10/22 14:47 Attending Physician Rosalba Murray DO Admitting Physician Admitting Physician: Rosalba Murray DO Attending Physician: Rosalba Murray DO Consult Allergies and Home Medications Allergies Coded Allergies: No Known Drug Allergies (Unverified , 06/23/12) Patient Home Medication List Home Medication List Reviewed: Yes Aspirin (Aspirin Ec 81 Mg) 81 Mg Tabec, 81 MG PO DAILY, (Reported) Entered as Reported by: ALECIA MORE on 06/23/12 1554 Azithromycin (Zithromax) 250 Mg Tablet, 250 MG PO UD Prescribed by: BARBARA ARVIZU on 08/14/18 1817 Carvedilol (Carvedilol) 12.5 Mg Tablet, 12.5 MG PO BID, (Reported) Entered as Reported by: BRADLEY ELLSWORTH on 12/15/15 1118 Cephalexin (Keflex) 500 Mg Capsule, 500 MG PO TID Prescribed by: ALLIE VELA on 12/15/15 1139 Doxycycline Hyclate (Doxycycline Hyclate) 100 Mg Tablet, 100 MG PO BID Prescribed by: CARLA DUGAN on 03/04/22 1232 Hydrocodone/Acetaminophen (Hydrocodone/Acetaminophen 5 MG/325 MG TAB) 1 Each Tablet, 1 EACH PO Q6H PRN for PAIN Prescribed by: ALLIE VELA on 12/15/15 1139 Lisinopril (Lisinopril) 20 Mg Tablet, 20 MG PO DAILY, (Reported) Entered as Reported by: BRADLEY ELLSWORTH on 12/15/15 1118 Methylprednisolone (Medrol) 4 Mg Tab.ds.pk, 4 MG PO UD Prescribed by: BARBARA ARVIZU on 08/14/18 1817 Multivitamin (Multi Vitamin Daily) 1 Each Tablet, 1 EACH PO DAILY, (Reported) Entered as Reported by: HAROON GRACE on 09/04/14 1300 Multivits,Stress Formula (Stress-C) 1 Each Tablet, 1 EACH PO, (Reported) Entered as Reported by: BRADLEY ELLSWORTH on 12/15/15 1118 Nystatin (Nystatin) 100,000 Unit/Ml Oral.susp, 100,000 UNIT PO TID Prescribed by: MOO AVILA MD on 03/09/22 1501 Pioglitazone Hcl/Metformin Hcl (Actoplus Met 15 Mg-850 Mg Tab) 1 Each Tablet, 1 EACH PO DAILY, (Reported) Entered as Reported by: ALECIA MORE on 06/23/12 1554 Pravastatin Sodium (Pravastatin Sodium) 40 Mg Tablet, 40 MG PO, (Reported) Entered as Reported by: BRADLEY ELLSWORTH on 12/15/15 1118 Past Pvubbwb-Pwfxhm-Crlyoh Hx Patient Social History Marrital Status: Immunizations Up To Date Date of Influenza Vaccine: Apr 23, 2014 First/Initial COVID19 Vaccinat: UNK Second COVID19 Vaccination Daryl: UNK Tetanus Booster (TDap): Less Than 5 Years Date of Pneumonia Vaccine: Aug 03, 2014 Current Status Primary Language: [place] Past Medical History Surgeries: Orthopedic Heart Attack Diabetes, Non-Insulin dep Prostate Blood Disorders: No Family Medical History No Pertinent Family Hx Review of Systems Constitutional: weakness EENTM: No see HPI, No no symptoms reported, No ear discharge, No hearing loss, No ear pain, No blurred vision, No double vision, No eye pain, No tearing, No vision loss, No dental problems, No hoarseness, No mouth pain, No mouth swelling, No epistaxis, No nose congestion, No nose pain, No throat pain, No throat swelling, No other Respiratory: dyspnea on exertion, short of breath Cardiovascular: No no symptoms reported, No see HPI, No chest pain, No edema, No Hx of Intervention, No palpitations, No syncope, No vascular heart diseas, No other Gastrointestinal: loss of appetite, nausea Genitourinary: decreased output Musculoskeletal: muscle weakness Skin: No no symptoms reported, No see HPI, No change in color, No change in hair/nails, No dryness, No hx of skin cancer, No lesions, No lumps, No pruritus, No rash, No other Psychiatric/Neurological: Weakness Physical Exam Vital Signs Capillary Refill : Height, Weight, BMI Height: 5'10.00" Weight: 195lbs. oz. 88.489065nx; 29.00 BMI Method:Stated General Appearance: Moderate Distress HEENT: Other (thrush) Neck: Supple Respiratory: Crackles (in bases), Decreased Breath Sounds Cardiovascular: Gallop/S4, Tachycardia Gastrointestinal: Normal Bowel Sounds, Non Tender, Soft Rectal: Deferred Extremity: Non Tender, No Calf Tenderness, No Pedal Edema Neurologic/Psychiatric: Alert, Oriented x3, Motor Weakness (in wheelchair) Assessment/Plan Assessment and Plan 1. COVID-19--admit and start IS, lovenox for DVT prophylaxis 2. Dehydration--admit for IVFs and monitor BUN/Cr 3. Hypertension/Sinus Tachycardia--start Carvedilol and monitor on telemetry 4. Thrush--nystain orally and diflucan 5. Diabetes mellitus--accuchecks and SSI 6. Atelectesis--start IS 7. Acute Renal Insufficiency--hydrate and monitor renal function 8. Weakness-hydrate and monitor 9. Dyspepsia/Nausea--IV protonix for GI prophylaxis and zofran prn, clear liquids then advance as tolerated Admission Diagnosis Admission Status: Observation ROSALBA MURRAY DO Mar 10, 2022 14:52
[2022-03-10] MEDS ORDERED: fluCOnazole (DIFLUCAN) 100 MG TAB PO NR (15:15)
[2022-03-10] MEDS ORDERED: NS IV 1000 ML 1,000 ML ONE (15:18)
[2022-03-10 15:19] VITALS: BP 187/94
[2022-03-10] MEDS ORDERED: PANTOPRAZOLE 40 MG (PROTONIX) VIAL IV NR (15:30)
[2022-03-10] MEDS: NS IV 1000 ML 1,000 ML IV SCH ×3 (15:38→23:19)
[2022-03-10] MEDS: NYSTATIN ORAL SUSP 5 ML UDC PO SCH ×2 (16:30→23:19)
[2022-03-10] MEDS: ENOXAPARIN 40 MG/0.4 ML (LOVENOX) SYR SC SCH (16:31)
[2022-03-10] MEDS: inSUlin ASPART (NovoLOG) 1 UNIT/0.01 ML (CHARGE PER UNIT) SC SCH ×2 (16:32→21:53)
[2022-03-10 16:49] LABS: BASOPHILS % (AUTO) 0 % (0-10); EOSINOPHILS % (AUTO) 0 % (0-10); HEMATOCRIT 50 % (40-54); LYMPHOCYTES # (AUTO) 0.8 10^3/uL (1.0-4.0); LYMPHOCYTES % (AUTO) 7 % (12-44); MEAN CORPUSCULAR HEMOGLOBIN 31 pg (25-34); MEAN CORPUSCULAR HGB CONC 34 g/dL (32-36); MEAN CORPUSCULAR VOLUME 92 fL (80-99); MEAN PLATELET VOLUME 8.8 fL (9.0-12.2); MONOCYTES # (AUTO) 0.7 10^3/uL (0.0-1.0); MONOCYTES % (AUTO) 6 % (0-12); NEUTROPHILS # (AUTO) 8.5 10^3/uL (1.8-7.8); NEUTROPHILS % (AUTO) 83 % (42-75); PLATELET COUNT 175 10^3/uL (130-400); WHITE BLOOD COUNT 10.3 10^3/uL (4.3-11.0)
[2022-03-10 17:09] LABS: ALBUMIN 3.8 GM/DL (3.2-4.5)
[2022-03-10 17:10] LABS: POTASSIUM 5.1 MMOL/L (3.6-5.0)
[2022-03-10 17:11] LABS: CALCIUM 9.7 MG/DL (8.5-10.1)
[2022-03-10 17:12] LABS: TOTAL PROTEIN 6.9 GM/DL (6.4-8.2)
[2022-03-10 17:14] LABS: BILIRUBIN,TOTAL 1.1 MG/DL (0.1-1.0)
[2022-03-10 17:15] LABS: CREATININE SERUM 1.51 MG/DL (0.60-1.30)
[2022-03-10] MEDS ORDERED: [UNRECOGNIZED DRUG - OTHER] PO (17:25)
[2022-03-10] MEDS ORDERED: CHOL500050 PO (17:25)
[2022-03-10] MEDS ORDERED: ASCO100024 PO (17:25)
[2022-03-10] MEDS ORDERED: GLIM2TAB4 PO (17:25)
[2022-03-10] MEDS ORDERED: ZINC50TA51 PO (17:25)
[2022-03-10] MEDS ORDERED: SITA100T12 PO (17:25)
[2022-03-10] MEDS ORDERED: ATOR40TA70 PO (17:25)
[2022-03-10] MEDS ORDERED: ALBU8.5H9 IH (17:25)
[2022-03-10] MEDS ORDERED: METF-865 PO (17:25)
[2022-03-10 18:01] VITALS: BP 153/80
[2022-03-10 19:48] VITALS: BP 138/91
[2022-03-10] MEDS: CHLORASEPTIC SPRAY 177 ML LIQUID MC PRN (20:07)
[2022-03-10 23:26] VITALS: BP 175/86
[2022-03-11 00:27] VITALS: BP 162/84
[2022-03-11 03:39] VITALS: BP 152/77
[2022-03-11] MEDS: CHLORASEPTIC SPRAY 177 ML LIQUID MC PRN (03:41)
[2022-03-11] MEDS: NYSTATIN ORAL SUSP 5 ML UDC PO SCH ×4 (04:58→23:58)
[2022-03-11 06:07] LABS: HEMATOCRIT 44 % (40-54); MEAN CORPUSCULAR HEMOGLOBIN 31 pg (25-34); MEAN CORPUSCULAR HGB CONC 34 g/dL (32-36); MEAN CORPUSCULAR VOLUME 93 fL (80-99); MEAN PLATELET VOLUME 8.8 fL (9.0-12.2); PLATELET COUNT 132 10^3/uL (130-400); WHITE BLOOD COUNT 6.1 10^3/uL (4.3-11.0)
[2022-03-11] MEDS: inSUlin ASPART (NovoLOG) 1 UNIT/0.01 ML (CHARGE PER UNIT) SC SCH ×4 (06:09→20:58)
[2022-03-11 06:18] LABS: ALBUMIN 3.2 GM/DL (3.2-4.5); POTASSIUM 4.6 MMOL/L (3.6-5.0)
[2022-03-11 06:19] LABS: CALCIUM 8.8 MG/DL (8.5-10.1)
[2022-03-11 06:20] LABS: TOTAL PROTEIN 5.8 GM/DL (6.4-8.2)
[2022-03-11 06:22] LABS: BILIRUBIN,TOTAL 0.8 MG/DL (0.1-1.0)
[2022-03-11 06:24] LABS: CREATININE SERUM 1.28 MG/DL (0.60-1.30)
[2022-03-11] MEDS: PANTOPRAZOLE 40 MG (PROTONIX) VIAL IV SCH (09:06)
[2022-03-11] MEDS: 1/2 NS IV SOLUTION 1,000 ML IV SCH ×2 (09:06→18:17)
[2022-03-11] MEDS: fluCOnazole (DIFLUCAN) 100 MG TAB PO SCH (09:06)
[2022-03-11 11:50] VITALS: BP 143/68
[2022-03-11] MEDS ORDERED: ASCO100099 PO (12:23)
[2022-03-11] MEDS ORDERED: MULT-1061 PO (12:23)
[2022-03-11] MEDS ORDERED: OMEG-9 PO (12:23)
[2022-03-11] MEDS ORDERED: DOXY100C5 PO (12:23)
[2022-03-11] MEDS ORDERED: ASPI-1238 PO (12:23)
[2022-03-11] MEDS ORDERED: CARV12.53 PO (12:34)
--- NOTE | 2022-03-11 12:39 | Progress Note ---
Subjective Date Seen by a Provider: Mar 11, 2022 Time Seen by a Provider: 08:35 Subjective/Events-last exam Fwup dehydration, acute renal insufficiency, atelectesis, COVID-19, fat igue/weakness, hyperglycemia, HTN. Sitting up in chair and states I made it through the night. C/O nausea. Objective Exam Vital Signs Date Time Temp Pulse Resp B/P (MAP) Pulse Ox O2 Delivery O2 Flow Rate FiO2 03/11/22 11:50 36.1 72 18 143/68 (93) 95 Room Air 03/11/22 09:31 95 Room Air 03/11/22 07:12 67 03/11/22 03:39 36.2 77 18 152/77 (102) 95 Room Air 03/11/22 01:00 87 03/11/22 00:27 162/84 (110) 03/10/22 23:26 36.0 79 18 175/86 (115) 96 Room Air 03/10/22 19:48 36.7 87 19 138/91 (107) 94 Room Air 03/10/22 19:00 92 03/10/22 18:20 94 Room Air 03/10/22 18:01 36.5 93 20 153/80 (104) 94 Room Air 03/10/22 15:38 96 03/10/22 15:19 35.8 106 20 187/94 (125) 96 Room Air I & O 03/11/22 07:00 Intake Total 520 ml Output Total 220 ml Balance 300 ml Capillary Refill : General Appearance: Moderate Distress Respiratory: Lungs Clear, Decreased Breath Sounds Cardiovascular: Regular Rate, Rhythm, Gallop/S4 Gastrointestinal: normal bowel sounds, non tender, soft Extremity: Non Tender, No Calf Tenderness, No Pedal Edema Neurologic/Psychiatric: Alert Results Lab Laboratory Tests 03/10/22 15:33: Glucometer 344H 03/10/22 16:40: White Blood Count 10.3, Red Blood Count 5.43, Hemoglobin 17.0, Hematocrit 50, Mean Corpuscular Volume 92, Mean Corpuscular Hemoglobin 31, Mean Corpuscular Hemoglobin Concent 34, Red Cell Distribution Width 13.2, Platelet Count 175, Mean Platelet Volume 8.8L, Immature Granulocyte % (Auto) 2, Neutrophils (%) (Auto) 83H, Lymphocytes (%) (Auto) 7L, Monocytes (%) (Auto) 6, Eosinophils (%) (Auto) 0, Basophils (%) (Auto) 0, Neutrophils # (Auto) 8.5H, Lymphocytes # (Auto) 0.8L, Monocytes # (Auto) 0.7, Eosinophils # (Auto) 0.0, Basophils # (Auto) 0.0, Immature Granulocyte # (Auto) 0.3H, Sodium Level 148H, Potassium Level 5.1H, Chloride Level 111H, Carbon Dioxide Level 20L, Anion Gap 17H, Blood Urea Nitrogen 51H, Creatinine 1.51H, Estimat Glomerular Filtration Rate 46, BUN/Creatinine Ratio 34, Glucose Level 377H, Calcium Level 9.7, Corrected Calcium 9.9, Total Bilirubin 1.1H, Aspartate Amino Transf (AST/SGOT) 48H, Alanine Aminotransferase (ALT/SGPT) 183H, Alkaline Phosphatase 63, Total Protein 6.9, Albumin 3.8 03/10/22 21:49: Glucometer 291H 03/11/22 05:58: White Blood Count 6.1, Red Blood Count 4.78, Hemoglobin 15.0, Hematocrit 44, Mean Corpuscular Volume 93, Mean Corpuscular Hemoglobin 31, Mean Corpuscular Hemoglobin Concent 34, Red Cell Distribution Width 13.0, Platelet Count 132, Mean Platelet Volume 8.8L, Sodium Level 149H, Potassium Level 4.6, Chloride Level 117H, Carbon Dioxide Level 21, Anion Gap 11, Blood Urea Nitrogen 41H, Creatinine 1.28, Estimat Glomerular Filtration Rate 57, BUN/Creatinine Ratio 32, Glucose Level 268H, Calcium Level 8.8, Corrected Calcium 9.4, Total Bilirubin 0.8, Aspartate Amino Transf (AST/SGOT) 40H, Alanine Aminotransferase (ALT/SGPT) 152H, Alkaline Phosphatase 55, Total Protein 5.8L, Albumin 3.2 03/11/22 06:05: Glucometer 265H 03/11/22 11:31: Glucometer 258H Assessment/Plan Assessment/Plan Assess & Plan/Chief Complaint 1. Dehydration/Acute Renal Insufficiency--BUN/Cr improved, encourage oral intake, continue IVFs but change to 1/2 NS 2. COVID-19--Lovenox for DVT prophylaxis, encourage IS, completed paxlovid and decadron courses prior to admission 3. Hypertension--increase Coreg to 25mg po BID 4. Dyspepsia/Nausea--on protonix for GI prophylaxis, zofran prn 5. DMII with hyperglycemia--on SSI, will add low dose levemir 6. Thrush--on nystatin and diflucan 7. Hypernatremia--change IVFs to 1/2NS and monitor 8. Weakness/Fatigue--up to chair and encourage moving around in room Clinical Quality Measures Admission Status Admission Dx 1. COVID-19--admit and start IS, lovenox for DVT prophylaxis 2. Dehydration--admit for IVFs and monitor BUN/Cr 3. Hypertension/Sinus Tachycardia--start Carvedilol and monitor on telemetry 4. Thrush--nystain orally and diflucan 5. Diabetes mellitus--accuchecks and SSI 6. Atelectesis--start IS 7. Acute Renal Insufficiency--hydrate and monitor renal function 8. Weakness-hydrate and monitor 9. Dyspepsia/Nausea--IV protonix for GI prophylaxis and zofran prn, clear liquids then advance as tolerated ROSALBA AGUSTIN DO Mar 11, 2022 12:39
[2022-03-11 16:01] VITALS: BP 148/81
[2022-03-11] MEDS: ENOXAPARIN 40 MG/0.4 ML (LOVENOX) SYR SC SCH (16:21)
[2022-03-11 20:57] VITALS: BP 167/86
[2022-03-12] VITALS (7 sets, daily range): BP systolic 114–170; BP diastolic 63–78
[2022-03-12] MEDS: 1/2 NS IV SOLUTION 1,000 ML IV SCH ×2 (05:02→15:14)
[2022-03-12] MEDS: NYSTATIN ORAL SUSP 5 ML UDC PO SCH ×4 (05:02→23:25)
[2022-03-12] MEDS: inSUlin ASPART (NovoLOG) 1 UNIT/0.01 ML (CHARGE PER UNIT) SC SCH ×4 (05:04→21:14)
[2022-03-12 06:37] LABS: ALBUMIN 2.7 GM/DL (3.2-4.5); POTASSIUM 4.1 MMOL/L (3.6-5.0)
[2022-03-12 06:38] LABS: CALCIUM 7.8 MG/DL (8.5-10.1)
[2022-03-12 06:40] LABS: TOTAL PROTEIN 4.9 GM/DL (6.4-8.2)
[2022-03-12 06:41] LABS: BILIRUBIN,TOTAL 0.8 MG/DL (0.1-1.0)
[2022-03-12] MEDS: PANTOPRAZOLE 40 MG (PROTONIX) VIAL IV SCH (09:04)
[2022-03-12] MEDS: fluCOnazole (DIFLUCAN) 100 MG TAB PO SCH (09:04)
--- NOTE | 2022-03-12 13:04 | Progress Note ---
Subjective Date Seen by a Provider: Mar 12, 2022 Time Seen by a Provider: 13:02 Subjective/Events-last exam Fwup dehydration, acute renal insufficiency, atelectesis, COVID-19, fati stephenie/weakness, hyperglycemia, HTN. Feeling better. Wants regular food. Objective Exam Vital Signs Date Time Temp Pulse Resp B/P (MAP) Pulse Ox O2 Delivery O2 Flow Rate FiO2 03/12/22 11:57 36.0 63 18 114/63 (80) 94 Room Air 03/12/22 09:00 95 Room Air 03/12/22 08:07 35.6 60 18 138/72 (94) 94 Room Air 03/12/22 07:00 60 03/12/22 03:07 36.4 60 18 150/71 (97) 94 Room Air 03/12/22 01:00 62 03/12/22 00:30 36.5 62 18 133/65 (87) 93 Room Air 03/11/22 20:57 36.6 66 19 167/86 (113) 94 Room Air 03/11/22 20:45 94 Room Air 03/11/22 19:00 69 03/11/22 16:01 36.7 64 19 148/81 (103) 95 Room Air 03/11/22 13:42 64 I & O 03/12/22 07:00 Intake Total 1310 ml Output Total 100 ml Balance 1210 ml Capillary Refill : General Appearance: No Apparent Distress Neck: Supple Cardiovascular: Regular Rate, Rhythm Gastrointestinal: normal bowel sounds, non tender, soft Extremity: Non Tender, No Calf Tenderness, No Pedal Edema Neurologic/Psychiatric: Alert, Oriented x3 Results Lab Laboratory Tests 03/11/22 15:53: Glucometer 220H 03/11/22 20:49: Glucometer 176H 03/12/22 05:01: Glucometer 171H 03/12/22 06:01: Sodium Level 142, Potassium Level 4.1, Chloride Level 114H, Carbon Dioxide Level 21, Anion Gap 7, Blood Urea Nitrogen 30H, Creatinine 1.00, Estimat Glomerular Filtration Rate 76, BUN/Creatinine Ratio 30, Glucose Level 190H, Calcium Level 7.8L, Corrected Calcium 8.8, Total Bilirubin 0.8, Aspartate Amino Transf (AST/SGOT) 33, Alanine Aminotransferase (ALT/SGPT) 114H, Alkaline Phosphatase 46, Total Protein 4.9L, Albumin 2.7L 03/12/22 11:14: Glucometer 281H Assessment/Plan Assessment/Plan Assess & Plan/Chief Complaint 1. Dehydration/Acute Renal Insufficiency--BUN/Cr improved, encourage oral intake, continue IVFs but decrease rate 2. COVID-19--Lovenox for DVT prophylaxis, encourage IS, completed paxlovid and decadron courses prior to admission 3. Hypertension--stable on Coreg to 25mg po BID 4. Dyspepsia/Nausea--on protonix for GI prophylaxis, zofran prn, improved so will advance to diabetic diet 5. DMII with hyperglycemia--on SSI, increase levemir dose 6. Thrush--on nystatin and diflucan 7. Hypernatremia--improving 8. Weakness/Fatigue--up to chair and encourage moving around in room Plan DC home tomorrow if tolerating regular diet Clinical Quality Measures Admission Status Admission Dx 1. COVID-19--admit and start IS, lovenox for DVT prophylaxis 2. Dehydration--admit for IVFs and monitor BUN/Cr 3. Hypertension/Sinus Tachycardia--start Carvedilol and monitor on telemetry 4. Thrush--nystain orally and diflucan 5. Diabetes mellitus--accuchecks and SSI 6. Atelectesis--start IS 7. Acute Renal Insufficiency--hydrate and monitor renal function 8. Weakness-hydrate and monitor 9. Dyspepsia/Nausea--IV protonix for GI prophylaxis and zofran prn, clear liquids then advance as tolerated ROSALBA AGUSTIN DO Mar 12, 2022 13:04
[2022-03-12] MEDS: ENOXAPARIN 40 MG/0.4 ML (LOVENOX) SYR SC SCH (15:14)
[2022-03-13 04:53] VITALS: BP 141/74
[2022-03-13] MEDS: NYSTATIN ORAL SUSP 5 ML UDC PO SCH ×2 (04:54→11:56)
[2022-03-13] MEDS: 1/2 NS IV SOLUTION 1,000 ML IV SCH (04:55)
[2022-03-13] MEDS: inSUlin ASPART (NovoLOG) 1 UNIT/0.01 ML (CHARGE PER UNIT) SC SCH ×2 (05:16→11:57)
[2022-03-13 08:30] VITALS: BP 168/75
[2022-03-13] MEDS: PANTOPRAZOLE 40 MG (PROTONIX) VIAL IV SCH (08:35)
[2022-03-13] MEDS: fluCOnazole (DIFLUCAN) 100 MG TAB PO SCH (08:35)
--- NOTE | 2022-03-13 10:47 | Diagnostic Imaging Report ---
INDICATION: Abnormal breath sounds. Frontal chest obtained at 10:41 a.m. compared 03/09/2022 FINDINGS: Heart is mildly prominent. There is poor inspiration with mild bibasilar atelectasis. There is no pneumothorax or pleural fluid. IMPRESSION: Poor inspiration with mild bibasilar atelectasis. No other significant finding. Dictated by: Dictated on workstation # [id number]
[2022-03-13 12:00] VITALS: BP 130/69
[2022-03-13] MEDS ORDERED: FLUC100T PO (12:24)
--- NOTE | 2022-03-13 14:27 | Discharge Summary ---
Diagnosis/Chief Complaint Date of Admission Mar 10, 2022 at 14:50 Date of Discharge Discharge Date: Mar 13, 2022 Discharge Diagnosis 1. COVID-19--ongoing fatigue 2. Dehydration--resolved 3. Hypertension/Sinus Tachycardia--improved 4. Thrush--nystain orally and diflucan 5. Diabetes mellitus with hyperglycemia--blood sugar trending down 6. Atelectesis--home on IS 7. Acute Renal Insufficiency--resolved 8. Weakness-improving 9. Dyspepsia/Nausea/Poor Appetite--improving 10. Hypernatremia--Resolved Reason Hospital Visit This is an 82 year old male who was diagnosed with COVID-19 on 03/02/22. He was seen in the emergency room for fatigue, shortness of breath and weakness on 03/04/22 and told to continue with the paxlovid and hydrate and his medications were adjusted for his elevated blood sugar from steroids. He then presented back to the emergency room on 03/09/22 for weakness, chest pain and shortness of air. His cardiac workup was negative. He was found to be dehydrated and to have thrush. He was prescribed nystatin and told to go home and hydrate. He presents to my office today with his pushing him in a wheelchair and stating he is dying. He has been unable to drink or eat due to his weakness and feeling nauseous. He will be directly admitted for IVFs and further evaluation and treatment. Discharge Summary Hospital Course Was the Problem List Reviewed?: Yes Hospital Course This is an 82 year old male who was diagnosed with COVID-19 on 03/02/22. He was seen in the emergency room for fatigue, shortness of breath and weakness on 03/04/22 and told to continue with the paxlovid and hydrate and his medications were adjusted for his elevated blood sugar from steroids. He then presented back to the emergency room on 03/09/22 for weakness, chest pain and shortness of air. His cardiac workup was negative. He was found to be dehydrated and to have thrush. He was prescribed nystatin and told to go home and hydrate. He presentend to my office the following day with his pushing him in a wheelchair and stating he is dying. He not drinking or eating due to his weakness and feeling nauseous. He was directly admitted to the medical floor in isolation for IVFs and further evaluation and treatment. He was given IVFs and his BUN and creatinine improved from 51 and 1.51 on admit to 30 and 1.00 respectively on discharge. His sodium also improved from 148 on admission to 142 on discharge. He was given lovenox for DVT prophylaxis as well as protonix for GI prophylaxis and dyspepsia. His thrush was treated with both diflucan and nystatin suspension. He was started on incentive spirometry for atelectesis but was not good about using the IS the first 24hrs after admission due to being too tired. His appetite was finally improving by the day of discharge and he did consume a good portion of his breakfast and lunch. A repeat CXR showed atelectesis in his bases so he was once again instructed to use his incentive spirometry hourly while awake. He was up to the chair in his room and ambulating back and forth to the bathroom as well as to the chair. His blood sugar was improved from 300s on admission to low 100s to low 200. He will be discharged home on diflucan and nystatin and use his incentive spirometry routinely and resume his previous home meds and monitor his blood sugar. He will follow up with me in my office in 1 week. Labs Laboratory Tests 03/10/22 15:33: Glucometer 344H 03/10/22 16:40: Mean Platelet Volume 8.8L, Neutrophils (%) (Auto) 83H, Lymphocytes (%) (Auto) 7L , Neutrophils # (Auto) 8.5H, Lymphocytes # (Auto) 0.8L, Immature Granulocyte # (Auto) 0.3H, Sodium Level 148H, Potassium Level 5.1H, Chloride Level 111H, Carbon Dioxide Level 20L, Anion Gap 17H, Blood Urea Nitrogen 51H, Creatinine 1.51H, Glucose Level 377H, Total Bilirubin 1.1H, Aspartate Amino Transf (AST/SGOT) 48H, Alanine Aminotransferase (ALT/SGPT) 183H 03/10/22 21:49: Glucometer 291H 03/11/22 05:58: Mean Platelet Volume 8.8L, Sodium Level 149H, Chloride Level 117H, Blood Urea Nitrogen 41H, Glucose Level 268H, Aspartate Amino Transf (AST/SGOT) 40H, Alanine Aminotransferase (ALT/SGPT) 152H, Total Protein 5.8L 03/11/22 06:05: Glucometer 265H 03/11/22 11:31: Glucometer 258H 03/11/22 15:53: Glucometer 220H 03/11/22 20:49: Glucometer 176H 03/12/22 05:01: Glucometer 171H 03/12/22 06:01: Chloride Level 114H, Blood Urea Nitrogen 30H, Glucose Level 190H, Calcium Level 7.8L, Alanine Aminotransferase (ALT/SGPT) 114H, Total Protein 4.9L, Albumin 2.7L 03/12/22 11:14: Glucometer 281H 03/12/22 16:04: Glucometer 160H 03/12/22 20:03: Glucometer 212H 03/13/22 04:53: Glucometer 137H 03/13/22 11:40: Glucometer 202H Procedures None. Discharge Physical Examination Allergies: Coded Allergies: No Known Drug Allergies (Unverified , 06/23/12) Vitals & I&Os Vital Signs Date Time Temp Pulse Resp B/P (MAP) Pulse Ox O2 Delivery O2 Flow Rate FiO2 03/13/22 12:44 61 03/13/22 12:00 36.4 18 130/69 (89) 96 Room Air General Appearance: Alert, Oriented X3 Respiratory: Other (decreased breath sounds with crackles) Cardiovascular: Regular Rate Abdominal: Normal Bowel Sounds, Soft, No Tenderness Psych/Mental Status: Mental Status NL, Mood NL Discharge Home Medications Reviewed and agree with Discharge Medication list on patient's Discharge Instruction sheet Instructions to Patient/Family Please see electronic discharge instructions given to patient. ROSALBA AGUSTIN DO Mar 13, 2022 14:27
[2022-03-13 15:20] VITALS: BP 130/69
== END 2022-03-13 12:20 | disposition home or self-care (01) ==
LOC: 4TH 14:50 → UNDOADMOB 14:50 → 4TH 15:42 → UNDODISOB 03-13 15:20
PROVIDERS: ADMIT Family Medicine; ATTEND Family Medicine
DX: U07.1 COVID-19 (principal); E86.0 Dehydration; I10 Essential (primary) hypertension; R00.0 Tachycardia, unspecified; B37.0 Candidal stomatitis; J98.11 Atelectasis; E11.65 Type 2 diabetes mellitus with hyperglycemia; Z79.84 Long term (current) use of oral hypoglycemic drugs; N28.9 Disorder of kidney and ureter, unspecified; R53.1 Weakness; R53.83 Other fatigue; R10.13 Epigastric pain; E87.0 Hyperosmolality and hypernatremia
CPT/HCPCS: 71045; 80053 ×3; 82947 ×4; 85025; 85027; 96361; 96372 ×3; 96374; 96375; 96376 ×3; G0378; G0379; 36415